=== PATIENT | male | born 1970 | race Caucasian/White ===

== ENCOUNTER → 2022-02-19 | Outpatient (CLI) | payer MEDICARE ==
[2022-02-19 12:41] LABS: HEMOGLOBIN 13.9 gm/dl (14.0-17.5); RED BLOOD COUNT 4.77 M/UL (4.20-5.50); WHITE BLOOD COUNT 3.7 K/UL (4.5-11.0)
[2022-02-19 13:01] LABS: BUN/CREATININE RATIO 14 (0-10)
== END ==
LOC: LAB 11:21
PROVIDERS: Internal Medicine Gastroenterology
DX: K31.84 Gastroparesis (principal)
CPT/HCPCS: 36415; 80053; 84134; 85027; 85240; 85384; 85652; 86140; 87081